=== PATIENT | male | born 1945 | race Two or more races ===

== ENCOUNTER 2024-04-17 09:27 | Outpatient (RCR) | payer OTHER, MEDICAID, SELFPAY | END 2024-04-28 23:59 | disposition home or self-care (01) | LOC: CPTX 09:27 | PROVIDERS: PCP Nurse Practitioner Family; Referring Provider Nurse Practitioner Family; Visit Provider Nurse Practitioner Family | DX: Z53.8 Procedure and treatment not carried out for other reasons (principal) ==

== ENCOUNTER 2024-08-27 13:02 | Outpatient (RCR) | payer OTHER, SELFPAY | END 2024-08-27 23:59 | disposition home or self-care (01) | LOC: CPTX 13:02 | PROVIDERS: PCP Nurse Practitioner Family; Referring Provider Nurse Practitioner Family; Visit Provider Nurse Practitioner Family | DX: Z53.8 Procedure and treatment not carried out for other reasons (principal) ==

== ENCOUNTER → 2024-09-19 | Outpatient (CLI) | payer OTHER, SELFPAY ==
--- NOTE | 2024-09-19 14:35 | XR_ITS ---
Examination: Right elbow 3 views Technique: Elbow AP, oblique, lateral 3 views Exam date and time: September 19, 2024 1439 hours INDICATIONS: Right elbow pain this week FINDINGS: Moderate diffuse elbow osteoarthritis No elbow fracture 8mm posterior bony olecranon spur No elbow effusion IMPRESSION: Moderate elbow osteoarthritis.
== END | disposition home or self-care (01) ==
PROVIDERS: PCP Nurse Practitioner Family; Referring Provider Nurse Practitioner Family; Visit Provider Nurse Practitioner Family
DX: M19.021 Primary osteoarthritis, right elbow (principal)
CPT/HCPCS: 73080